=== PATIENT | female | born 1960 | race African-American/Black ===

== ENCOUNTER 2018-10-11 11:00 | Emergency (ER) | payer OTHER ==
[~2018-10-11] VITALS: Ht 162.6 cm; Wt 115.7 kg
[2018-10-11] MEDS ORDERED: DICL75TA5 PO (11:22)
[2018-10-11] MEDS ORDERED: ALBU8.5H8 IH (11:22)
[2018-10-11] MEDS ORDERED: DICL100G26 TP (11:22)
[2018-10-11] MEDS ORDERED: MOME13HF2 IH (11:22)
[2018-10-11] MEDS ORDERED: METH500T6 PO (11:22)
[2018-10-11] MEDS ORDERED: KETOROLAC TROMETHAMINE 30 MG INJ IM ONE (11:45)
[2018-10-11] MEDS ORDERED: KETOROLAC TROMETHAMINE 30 MG INJ ONE (11:56)
--- NOTE | 2018-10-11 12:04 | NUR ---
Patient discharged to home in stable conditon. Written and verbal after care instructions given. Patient verbalizes understanding of instructions.
== END 2018-10-11 12:05 | disposition home or self-care (01) ==
LOC: ER 11:00
DX: M25.562 Pain in left knee (principal); Z79.899 Other long term (current) drug therapy
CPT/HCPCS: 73564; 93971; 96372; 99284; J1885; A4663